=== PATIENT | female | born 1995 | race Hispanic/Latino ===

== ENCOUNTER 2016-05-16 22:44 | Emergency (ER) | payer OTHER ==
[~2016-05-16] VITALS: Ht 162.6 cm; Wt 97.7 kg
[2016-05-16 22:47] VITALS: BP 137/90; PULSE 100; RESP 18; O2SAT 98
--- NOTE | 2016-05-16 23:05 | ED.REPORT ---
HPI-General Illness Date of Service May 16, 2016 ED Provider: Dr. Carlos A Garcia M.D. A healthy 20 year old female presents to the ED with a productive cough onset three weeks ago. Associated symptoms include chest tightness, hoarse voice, sore throat, insomnia, and shortness of breath exacerbated with laying flat. She denies other symptoms. Nursing Notes Stated Complaint: COLD, SORE THROAT Chief Complaint: FLU/Cold Symptoms Nursing Notes Reviewed: Yes Allergies: Coded Allergies: No Known Allergies (Verified , 05/16/16) General Time Seen by MD: 23:05 Chief Complaint Cough Hx Obtained From: Patient Arrived By: Walk-in Sudden in Onset?: Yes Onset Occurred: More than a week ago... (3 weeks) Symptom Duration: Since onset Location: : Chest Quality: Painful (Tightness) Severity: Current: Moderate Severity: Maximum: Moderate Associated with: Reports: Shortness of breath, Denies: Fever Pertinent Negative: Relieved by nothing Recent Healthcare: No recent doctor visit Past Medical History Past Medical History None reported Past Surgical History Appendectomy Smoking History Unknown if Ever Smoker Social History Other Social History: Good social support Ambulatory Status Independent Review of Systems + Productive cough Full Review of Systems Constitutional: Denies: Fever Ears / Nose / Throat: Reports: Sore throat, Voice change (Hoarse) Respiratory: Reports: Shortness of breath Cardiovascular: Reports: Chest pain ("tightness") GI: Denies: Diarrhea, Vomiting Psychiatric: Reports: Insomnia Complete sys rev & neg: except as marked. Physical Exam Vital Signs Vital Signs Date Time Temp Pulse Resp B/P Pulse Ox O2 Delivery O2 Flow Rate FiO2 05/17/16 00:12 110 132/80 96 Room Air 05/16/16 23:51 94 20 98 Room Air 05/16/16 22:47 36.7 100 18 137/90 98 Room Air Initial VS: Reviewed Head / Eyes: Atraumatic, Normocephalic Neck: Supple, Full range of motion Cardiovascular: Regular rate & rhythm, Heart sounds normal Abdomen / GI: Soft, Non-tender Skin: Warm, Dry Neurologic: Alert, Oriented, Nonfocal Psychiatric: Mood/affect normal, Behavior normal, Normal thought content General/Constitutional: Awake, Alert, No acute distress ENT: Pharynx NL Right Ear / Mastoid: Positive: Ext canal cerumen impact Left Ear / Mastoid: Positive: Ext canal cerumen impact Nose: Positive: Discharge nasal clear, Turbinates swollen Hoarse voice Respiratory / Chest: Breath sounds NL, Breath sounds = bilat, No respiratory distress Tight cough Re-Eval/Medical Decision Med Decision/Clinical Course 20-year-old with laryngitis, bronchospastic cough, and cold symptoms for three weeks. Improved with nebulizer and home with spacer and puffer. Afrin to reduce her nasal discharge and nighttime up her airway challenge with postnasal drip. Discharged in stable condition. Source of Hx: Old records Time of Eval: 23:15 Patient Status: Condition improved Re-Evaluation/Progress Note: Discussed with patient lab results, diagnosis, and plan for discharge. Follow-up and return to the ER instructions given. Patient agrees with plan for care and all questions were addressed. Counseled Regarding: Diagnosis, Lab results, Need for follow-up, When/why to return to ED Discharge & Departure Shift Change Sign-Out Response to Therapy: Improved Primary Impression: Laryngitis Additional Impressions: Upper respiratory infection URI type: unspecified URI Qualified Code: J06.9 - Acute upper respiratory infection, unspecified Reactive airway disease that is not asthma Disposition: Home Discharge Condition All VS Reviewed: Yes Condition: Improved Patient Instructions: Reactive Airways Disease (ED) Additional Instructions: Use Afrin in both nostrils nightly for three nights then quit. Use three Elizabeth' s per side with a minute or so between sniffs, to allow the medicine to penetrate and really coat interior of the nose. It is important not to continue use Afrin beyond three nights, to avoid addiction. Albuterol two puffs every 4-6 hours as needed for cough and tightness. Follow-up with your doctor in the office. Referrals: [facility] (PCP) [facility] Scribe Attestation Portions of this note were transcribed by Hodan Rodriguez. I, Dr. Garcia, personally performed the history, physical exam, and medical decision-making; I reviewed and confirmed the accuracy of the information in the transcribed note. Signed by: Jose Rafael Kowalski, 05/17/2016, 03:40 copies to: [facility] Carlos A Garcia MD May 16, 2016 23:05 HODAN RODRIGUEZ May 16, 2016 23:10
[2016-05-16] MEDS ORDERED: Albuterol-Ipratropium 3 mL Inhalation Solution NEB ONE (23:10)
[2016-05-16] MEDS ORDERED: _Albuterol-HFA 60 Puff Inhaler INHALATION PRN (23:10)
[2016-05-16 23:51] VITALS: PULSE 94; RESP 20; O2SAT 98
[2016-05-17 00:12] VITALS: BP 132/80; PULSE 110; O2SAT 96
== END 2016-05-17 00:12 | disposition home or self-care (01) ==
LOC: SED 22:44
DX: J04.0 Acute laryngitis (principal); J06.9 Acute upper respiratory infection, unspecified; J98.9 Respiratory disorder, unspecified
CPT/HCPCS: 87880; 94664; 99284; J7620